=== PATIENT | male | born 1965 | race Caucasian/White ===

== ENCOUNTER 2021-06-01 17:36 | Emergency (ER) | payer MEDICAID, OTHER ==
[~2021-06-01] VITALS: Ht 167.6 cm; Wt 61.2 kg
[2021-06-01 17:40] VITALS: BP 132/74
--- NOTE | 2021-06-01 18:19 | NUR ---
PT AMBULATED TO BED 11.
--- NOTE | 2021-06-01 18:32 | NUR ---
55 YO MALE BIBS C/O LEFT HIP PAIN X LAST NIGHT. PAIN 8/10 WHEN BENDING LEG. PT STATES THAT THERE IS A GROWTH THAT HE JUST NOTICED THAT IS GIVING HIM PAIN. PT STATES IT IS A BALL, NOT POPPED YET. UPON ASSESSMENT PATIENT HAS RED AND WARM TO TOUCH AREA TO LEFT GROIN. INTACT ABCESS, NON DRAINING. SKIN IS INTACT, PT DENIES ANY BUG BITES OR ITCHING TO AREA. DENIES PROBLEMS WITH URINATION. DENIES FEVER, CHILLS, N/V/D. A&oX4, RR EVEN AND UNLABORED. PMH - DENIES ALLERGY: OMEPRAZOLE
[2021-06-01] MEDS ORDERED: CEPH500C16 PO (18:40)
[2021-06-01] MEDS ORDERED: NAPR-54 PO (18:40)
[2021-06-01] MEDS ORDERED: SULF-59 PO (18:40)
--- NOTE | 2021-06-01 19:18 | NUR ---
Patient discharged with v/s stable. Written and verbal after care instructions given and explained. Patient alert, oriented and verbalized understanding of instructions. Ambulatory with steady gait. All questions addressed prior to discharge. ID band removed. Patient advised to follow up with PMD. Rx of KEFLEX, NAPROSYN, BACTRIM given. Patient educated on indication of medication including possible reaction and side effects. Opportunity to ask questions provided and answered.
== END 2021-06-01 19:18 | disposition home or self-care (01) ==
LOC: MED 17:36
DX: L03.314 Cellulitis of groin (principal); Z88.8 Allergy status to other drugs, medicaments and biological substances; Z98.890 Other specified postprocedural states
CPT/HCPCS: 99283

== ENCOUNTER 2021-06-04 13:06 | Emergency (ER) | payer OTHER ==
[~2021-06-04] VITALS: Ht 167.6 cm; Wt 69.4 kg
[~2021-06-04 13:06] MED LIST: CEPH500C16 PO; NAPR-54 PO; SULF-59 PO
[2021-06-04 13:23] VITALS: BP 141/85
--- NOTE | 2021-06-04 13:26 | NUR ---
PT SENT TO ER LOBBY TO WAIT FOR AVAILABLE BED.
--- NOTE | 2021-06-04 15:30 | NUR ---
55 Y/O MALE C/O WORSENING CELLULITIS TO LEFT GROIN. PT STATES 8/10 PAIN. TENDER TO TOUCH. SKIN WARM AND DRY. DENIES ANY RECENT FEVER OR COUGH. MEDHX: DENIES ALLERGIES: OMEPRAZOLE
--- NOTE | 2021-06-04 15:30 | NUR ---
blood labs collected and handed to sharmaine lynn
[2021-06-04 15:48] LABS: BASOPHILS # (AUTO) 0.1 K/uL (0.00-0.22); BASOPHILS % (AUTO) 0.8 % (0.0-2.0); EOSINOPHILS # (AUTO) 0.3 K/uL (0-0.4); HEMATOCRIT 42.8 % (36-52); HEMOGLOBIN 14.4 g/dL (12.0-18.0); LYMPHOCYTES # (AUTO) 2.7 K/uL (2.0-11.5); LYMPHOCYTES % (AUTO) 21.5 % (20.5-51.1); MEAN CORPUSCULAR HEMOGLOBIN 31 pg (27-31); MEAN CORPUSCULAR HGB CONC 34 g/dL (33-37); MEAN CORPUSCULAR VOLUME 90.4 fL (80-94); MONOCYTES # (AUTO) 1.1 K/uL (0.8-1.0); MONOCYTES % (AUTO) 8.7 % (1.7-9.3); NEUTROPHILS # (AUTO) 8.4 K/uL (1.8-7.7); PLATELET COUNT (AUTO) 368 K/uL (140-450); RED BLOOD CELL COUNT(AUTO) 4.73 MIL/uL (4.20-6.10); RED CELL DISTRIBUTION WIDTH 14.3 % (11.6-13.7); WHITE BLOOD COUNT (AUTO) 12.5 K/uL (4.8-10.8)
[2021-06-04 16:00] LABS: ALBUMIN 3.2 g/dL (3.4-5.0); CARBON DIOXIDE 30.2 mmol/L (21-32); CREATININE 1.1 mg/dL (0.6-1.3); POTASSIUM 4.2 mmol/L (3.5-5.1); TOTAL BILIRUBIN 0.1 mg/dL (0.0-1.0)
--- NOTE | 2021-06-04 16:40 | NUR ---
PT TAKEN TO CT SCAN [facility]
--- NOTE | 2021-06-04 16:59 | NUR ---
PT RETURNED FROM CT SCAN
[2021-06-04 18:03] VITALS: BP 135/75
--- NOTE | 2021-06-04 18:03 | NUR ---
Patient discharged with v/s stable. Written and verbal after care instructions given and explained. Patient alert, oriented and verbalized understanding of instructions. Ambulatory with steady gait. All questions addressed prior to discharge. ID band removed. Patient advised to follow up with PMD. Opportunity to ask questions provided and answered.
== END 2021-06-04 18:03 | disposition home or self-care (01) ==
LOC: MED 13:06
DX: L03.314 Cellulitis of groin (principal); Z79.2 Long term (current) use of antibiotics; Z79.1 Long term (current) use of non-steroidal anti-inflammatories (NSAID); Z88.8 Allergy status to other drugs, medicaments and biological substances
CPT/HCPCS: 36415; 74177; 80053; 81002; 85025; 99285; Q9967